=== PATIENT | female | born 1970 | race Caucasian/White ===

== ENCOUNTER 2021-06-23 12:37 | Emergency (ER) | payer OTHER ==
[2021-06-23 14:31] LABS: HEMOGLOBIN 14.8 gm/dl (12.3-15.3); RED BLOOD COUNT 5.27 M/UL (4.00-5.10)
[2021-06-23 15:16] LABS: BUN/CREATININE RATIO 15 (0-10)
== END 2021-06-23 20:53 | disposition home or self-care (01) ==
LOC: ER1 12:37
PROVIDERS: Physician Assistant
DX: R00.0 Tachycardia, unspecified (principal); E07.9 Disorder of thyroid, unspecified; F17.290 Nicotine dependence, other tobacco product, uncomplicated; Z79.899 Other long term (current) drug therapy
CPT/HCPCS: 71045; 80048; 82550; 82553; 83874; 84439; 84443; 84484; 85025; 93005; 99285

== ENCOUNTER → 2021-09-04 | Outpatient (CLI) | payer OTHER | LOC: HEART 5 15:22 | DX: R00.0 Tachycardia, unspecified (principal) ==